=== PATIENT | male | born 1970 | race Caucasian/White ===

== ENCOUNTER 2017-09-26 12:02 | Inpatient (IN) | payer OTHER ==
[~2017-09-26] VITALS: Ht 193 cm; Wt 161.0 kg
[2017-09-26] MEDS ORDERED: ONDANSETRON ODT 4 MG TAB.RAPDIS SL PRN (22:00)
[2017-09-26] MEDS ORDERED: THIAMINE HCL 200 MG/2 ML VIAL IM ONE (22:00)
[2017-09-26] MEDS ORDERED: LORAZEPAM 1 MG TABLET PO PRN ×2 (22:00)
[2017-09-26] MEDS ORDERED: CLONIDINE HCL 0.1 MG TABLET PO PRN (22:00)
[2017-09-26] MEDS ORDERED: IBUPROFEN 400 MG TABLET PO PRN (22:00)
[2017-09-26] MEDS ORDERED: ACETAMINOPHEN 325 MG TABLET PO PRN (22:00)
[2017-09-26] MEDS ORDERED: LOPERAMIDE HCL 2 MG CAPSULE PO PRN ×2 (22:00)
[2017-09-26] MEDS ORDERED: MAG HYDROX/AL HYDROX/SIMETH 30 ML LIQUID UDC PO PRN (22:00)
[2017-09-26] MEDS ORDERED: LORAZEPAM 2 MG/1 ML VIAL IM PRN (22:00)
[2017-09-26] MEDS ORDERED: hydrALAZINE HCL 50 MG TABLET PO PRN (22:00)
[2017-09-26] MEDS ORDERED: ONDANSETRON 4 MG/2 ML VIAL IM PRN (22:00)
[2017-09-26] MEDS ORDERED: DICYCLOMINE HCL 20 MG TABLET PO PRN (22:00)
[2017-09-26] MEDS ORDERED: MIRALAX 17 GM POWD.PACK PO PRN (22:00)
--- NOTE | 2017-09-26 22:00 | NUR ---
Pre - ADMISSION NOTE : Patient is 47 yo male presents for medically supervised withdrawal from alcohol on 09/26/2017. Pt. is NKA, FULL CODE, on Reg.Diet. He denies history of seizures and SI/HI , doesnt have Primary Care Provider at this time. Pt. states Dx of HTN, insomnia. Longest sober period was 8 months in 2014. Upon assessment, pt is alert and oriented x4, speech is clear and audible, adiposities . Pt noted to be anxious, restless, worried. Heart rate regular. Denies chest pain or SOB. PERRLA, breathing is even and unlabored, lung sounds clear. Denies nausea, vomiting, tactile disturbances, visual or auditory hallucinations at this time. Abdomen is soft and non-distended. AM=709/95, HR=97, RR=16, Spo2=97%, denies pain. [id number], Height=64. CIWA=8. Pt. will be admitted to the unit.
[2017-09-26 22:40] LABS: BASOPHILS # (AUTO) 0.1 K/uL (0.0-8.0); BASOPHILS % (AUTO) 0.9 % (0.0-2.0); EOSINOPHILS # (AUTO) 0.3 K/uL (0.0-0.7); EOSINOPHILS % (AUTO) 2.6 % (0.0-7.0); HEMATOCRIT 50.6 % (36.7-47.1); HEMOGLOBIN 16.8 g/dL (12.5-16.3); LYMPHOCYTES # (AUTO) 2.2 K/uL (20.0-40.0); MEAN CORPUSCULAR HEMOGLOBIN 33.3 uug (23.8-33.4); MEAN CORPUSCULAR HGB CONC 33 g/dL (32.5-36.3); MEAN CORPUSCULAR VOLUME 100.6 fL (73.0-96.2); MONOCYTES # (AUTO) 0.7 K/uL (2.0-10.0); MONOCYTES % (AUTO) 6.3 % (0.0-11.0); NEUTROPHILS # (AUTO) 7.2 K/uL (1.8-8.9); NEUTROPHILS % (AUTO) 69.2 % (38.5-71.5); PLATELET COUNT (AUTO) 310 K/uL (152-348); RED BLOOD CELL COUNT(AUTO) 5.03 MIL/uL (4.06-5.63); WHITE BLOOD COUNT (AUTO) 10.4 K/uL (3.6-10.2)
[2017-09-26 22:47] LABS: *AMPHETAMINE, URINE NEGATIVE (NEGATIVE); *BARBITURATE, URINE NEGATIVE (NEGATIVE); *CANNABINOID, URINE NEGATIVE (NEGATIVE); *COCCAINE, URINE NEGATIVE (NEGATIVE); *OPIATE, URINE NEGATIVE (NEGATIVE); *PHENCYCLIDINE SCREEN,URINE NEGATIVE (NEGATIVE)
[2017-09-26 22:49] LABS: ETHANOL < 3 MG/DL (0-0)
[2017-09-26 22:55] LABS: ALANINE AMINOTRANSFERASE 44 U/L (16-63); ALKALINE PHOSPHATASE 73 U/L (50-136); AMYLASE 30 U/L (25-115); ASPARTATE AMINOTRANSFERASE 22 U/L (15-37); BILIRUBIN,TOTAL 0.6 mg/dL (0.2-1.0); CARBON DIOXIDE 31 mmol/L (21-32); CHLORIDE 101 mmol/L (98-107); CREATININE 1.2 mg/dL (0.6-1.3); GLUCOSE 114 mg/dL (74-106); MAGNESIUM 2.2 mg/dL (1.8-2.4); POTASSIUM 3.9 mmol/L (3.5-5.1); TOTAL PROTEIN, SERUM 7.4 g/dL (6.4-8.2); UREA NITROGEN, BLOOD 16 mg/dL (7-18)
[2017-09-26] MEDS ORDERED: LORAZEPAM 1 MG TABLET PO SCH (23:00)
--- NOTE | 2017-09-26 23:00 | NUR ---
ADMISSION NOTE : Patient is 47 yo male admitted for supervised withdrawal from alcohol on 09/26/2017. Pt. is NKA, FULL CODE, on Reg.Diet. He denies history of seizures and SI/HI , doesnt have Primary Care Provider at this time. Pt. states Dx of HTN, insomnia. Pt. brought his home meds, see PC infos for details. Medications have been reconciled. Longest sober period was 8 months in 2014. Upon assessment, pt is alert and oriented x4, speech is clear and audible, adiposities . Pt noted to be anxious, restless, worried. Heart rate regular. Denies chest pain or SOB. PERRLA, breathing is even and unlabored, lung sounds clear. Denies nausea, vomiting, tactile disturbances, visual or auditory hallucinations at this time. Abdomen is soft and non-distended. Bowel sounds present in all quadrants, last BM 09/26/17. Pt reports that BM is regular. Pt's skin is warm, dry and intact, no open skin damages, two small bruises on the left thigh, MD aware of pt's admission, pt. can use his CPAP machine in the night. WM=118/95, HR=97, RR=16, Spo2=97%, denies pain. [id number], Height=64. CIWA=8. Pt oriented to room and unit. Safety measures in place, side rails up x 2 . Will continue to monitor closely and offer help. Substance use history per patient report: 1) alcohol (wine) - pt. reports last use was 09/25/17, drinking 1,800ml daily for the past 6mo., started drinking s.1997. 1) alcohol (beers) - pt. reports last use was 09/25/17, drinking 650ml daily for the past 6mo., started drinking s 1997. Rehab history: none Past Medical History : Obesity, HTN, Insomnia, Sleep Apnoe. Family History : CAD, pancreatic Ca, CHF, Alcoholizm, Depression
[2017-09-27] VITALS: BP 149/95
[2017-09-27] MEDS ORDERED: ASPI-612 PO (01:43)
[2017-09-27] MEDS ORDERED: [UNRECOGNIZED DRUG - SUPPLY] (01:43)
[2017-09-27] MEDS ORDERED: NICO4GUM38 BC (01:43)
[2017-09-27] MEDS ORDERED: CHOL50002 PO (01:43)
[2017-09-27] MEDS ORDERED: ASPI-605 PO (01:43)
[2017-09-27] MEDS ORDERED: ALBU2.5V13 IH (01:43)
[2017-09-27] MEDS ORDERED: SODI650T PO (01:43)
[2017-09-27] MEDS ORDERED: SPIR25TA4 PO (01:43)
[2017-09-27] MEDS ORDERED: IBUP-2314 PO (01:43)
[2017-09-27] MEDS ORDERED: LISI-603 PO (01:43)
[2017-09-27] MEDS ORDERED: [UNRECOGNIZED DRUG - SUPPLY] (01:43)
[2017-09-27 04:00] VITALS: BP 155/100
--- NOTE | 2017-09-27 05:00 | NUR ---
PRN CLONIDINE TF=744/100. PRN CLONIDINE given as ordered. Safety measures in place : bed on lowest position with side rails x2 up for safety, call light within reach. Will continue to monitor closely and offer help.
--- NOTE | 2017-09-27 06:00 | NUR ---
RE-ASSESSMENT CLONIDINE Pt. is sleeping, RR=16, unlabored and even . Safety measures in place : bed on lowest position with side rails x2 up for safety, call light within reach. Will continue to monitor closely and offer help.
--- NOTE | 2017-09-27 06:41 | NUR ---
END OF SHIFT NOTE : Patient is 47 yo male admitted for supervised withdrawal from alcohol on 09/26/2017. CPAP device and Breath Treatment Machine placed to the room per MD order, SCD device connected to the patient per MD order. Pt. is compliant with a TX plan, PRN given during form designer : Clonidine. CIWA taken when pt. was awake, last CIWA=8 at 04:00. Intake=1,592 , voided x 2 , slept=6 hours. Pt. was anxious when awake in the night, but states he feels better . Safety measures in place : bed on lowest position with side rails x2 up for safety, all light within reach. Will continue to monitor closely and offer help.
--- NOTE | 2017-09-27 07:45 | NUR ---
START OF SHIFT Endorse rcvd from ongoing nurse. Client is in bed, a/o x 4, he presents anxious mood, flat affect, avoidant eye contact, flushed face, tremors felt not observed, clammy skin, and difficulty concentrating. Client reports in a loud, shaky voice; abdominal cramps, feeling of panic, restless legs, no appetite and fatigue. Encourage client to increase PO fluid to facilitate detox. Encourage client to participate to attend group therapy for skills to maintain sober. Last CIWA 8 @ 1999. PRN Clonidine 0.1mg PO for BP 155/102, One time Ativan taper 2mg for anxiety, noted effective. Client slept 6 hrs. Seizure precautions rendered. Call light within reach.
[2017-09-27] MEDS ORDERED: TUBERCULIN,PURIF.PROT.DERIV. 5 TU/0.1 ML TEST ID ONE (09:00)
[2017-09-27] MEDS ORDERED: [UNRECOGNIZED DRUG - SUPPLY] XX SCH (09:30)
[2017-09-27 09:40] VITALS: BP 133/84
[2017-09-27] MEDS: MULTIVITAMINS,THERAPEUTIC TABLET PO SCH (09:42)
[2017-09-27] MEDS: THIAMINE HCL 100 MG TABLET PO SCH (09:43)
[2017-09-27] MEDS: FOLIC ACID 1 MG TABLET PO SCH (09:43)
--- NOTE | 2017-09-27 09:54 | NUR ---
Administered PPD Test to L forearm. Client tolerated well.
[2017-09-27] MEDS: HCTZ PO SCH (10:35)
[2017-09-27] MEDS: LISINOPRIL 20 MG PO SCH (10:35)
[2017-09-27] MEDS: SPIRONOLACTONE PO SCH (10:35)
[2017-09-27] MEDS ORDERED: NICOTINE 14 MG/24HR PATCH TD PRN (11:15)
[2017-09-27] MEDS ORDERED: METHYL SALICYLATE/MENTHOL CREAM 28 GM TUBE TOP PRN (11:15)
[2017-09-27] MEDS ORDERED: ASPIRIN/ACETAMINOPHEN/CAFFEINE TABLET PO PRN (11:15)
[2017-09-27] MEDS ORDERED: NICOTINE POLACRILEX 4 MG GUM-PK OF TEN BC PRN (11:15)
[2017-09-27 12:21] VITALS: BP 139/86
[2017-09-27] MEDS: LORAZEPAM 1 MG TABLET PO SCH ×2 (12:58→16:10)
[2017-09-27 16:55] VITALS: BP 132/84
[2017-09-27] MEDS: CARVEDILOL 6.25 MG TABLET PO SCH (17:02)
--- NOTE | 2017-09-27 19:30 | NUR ---
START OF SHIFT NOTE : Patient is 47 yo male admitted for supervised withdrawal from alcohol on 09/26/2017. Pt. is NKA, FULL CODE, on Reg.Diet. He denies history of seizures and SI/HI . Upon assessment, pt is alert and oriented x4, speech is clear and audible. Pt noted to be worried about his future, anxious, sad facial expression, flat affect, restless legs time to time, tremors. He complains of difficulty falling and staying asleep , increased level of anxiety. Last CIWA=8 at 19:30, No PRNs given during the day shift. Safety measures in place : bed on lowest position with side rails x2 up for safety, all light within reach. Will continue to monitor closely and offer help.
--- NOTE | 2017-09-27 19:38 | NUR ---
END OF SHIFT Endorsed client to incoming nurse, client is a/o x 4, he is not compliant with group therapy d/t withdrawal symptoms, he continues to present with anxious mood, flat affect, restless legs, fine tremors, and nausea. He consumed ~ 50% of meals. Adequate PO fluid intake 2200mL, void x 7, stool x 2. Last CIWA 16 @ 1600. Call light within reach.
[2017-09-27 20:00] VITALS: BP 145/70
[2017-09-27] MEDS ORDERED: LORAZEPAM 1 MG TABLET PO SCH (21:00)
--- NOTE | 2017-09-27 21:00 | NUR ---
PRN BENADRYL Pt. complains of difficulty falling asleep, insomnia. PRN BENADRYL given as ordered. Safety measures in place : bed on lowest position with side rails x2 up for safety, call light within reach. Will continue to monitor closely and offer help.
[2017-09-27] MEDS: diphenhydrAMINE 50 MG CAPSULE PO PRN (21:41)
[2017-09-27] MEDS: GABAPENTIN 100 MG CAPSULE PO SCH (21:41)
--- NOTE | 2017-09-27 22:00 | NUR ---
RE-ASSESSMENT LEX Pt. is sleeping, RR=16, unlabored and even . Safety measures in place : bed on lowest position with side rails x2 up for safety, call light within reach. Will continue to monitor closely and offer help.
--- NOTE | 2017-09-28 06:13 | NUR ---
END OF SHIFT NOTE : Patient is 47 yo male admitted for supervised withdrawal from alcohol on 09/26/2017. Pt. is NKA, FULL CODE, on Reg.Diet. He denies history of seizures and SI/HI . PRN given during the shift lab technician is BENADRYL. CIWA taken when pt. was awake, last CIWA=8 at 04:00. Intake=1,146 , voided x3, BM=x2 , slept=7 hours. Pt. used his CPAP device during the night, also states decreased level of anxiety and promised to participates in activities and meetings of the unit. . Safety measures in place : bed on lowest position with side rails x2 up for safety, all light within reach. Will continue to monitor closely and offer help.
[2017-09-28 08:00] VITALS: BP 113/68
--- NOTE | 2017-09-28 08:10 | NUR ---
START OF SHIFT NOTE Received report from night nurse, patient received PRN Benadryl, slept for 7 hours, last CIWA score was 8. Patient is cont on Ativan taper tolerating well. Received pt alert awake oriented noted with flat effect, unshaven, agitated, anxious. Skin intact warm and dry to touch. Educated pt regarding plan of the day and medication regimen patient verbalized understanding. Safety measures in place. Will cont to monitor.
[2017-09-28] MEDS: FOLIC ACID 1 MG TABLET PO SCH (08:26)
[2017-09-28] MEDS: LORAZEPAM 1 MG TABLET PO SCH ×3 (08:26→21:19)
[2017-09-28] MEDS: THIAMINE HCL 100 MG TABLET PO SCH (08:26)
[2017-09-28] MEDS: CARVEDILOL 6.25 MG TABLET PO SCH ×2 (08:26→17:02)
[2017-09-28] MEDS: GABAPENTIN 100 MG CAPSULE PO SCH ×2 (08:26→21:19)
[2017-09-28] MEDS: MULTIVITAMINS,THERAPEUTIC TABLET PO SCH (08:26)
[2017-09-28] MEDS: HCTZ PO SCH (08:27)
[2017-09-28] MEDS: LISINOPRIL 20 MG PO SCH (08:27)
[2017-09-28] MEDS: SPIRONOLACTONE PO SCH (08:27)
[2017-09-28] MEDS: ASPIRIN 81 MG PO SCH (08:27)
[2017-09-28 12:08] LABS: HEPATITIS B SURFACE AG Negative (Negative)
[2017-09-28 12:16] VITALS: BP 139/88
[2017-09-28 16:00] VITALS: BP 136/93
--- NOTE | 2017-09-28 19:09 | NUR ---
END OF SHIFT NOTE Patient presented with anxiety, agitation, hot and cold flashes, flat mood effect. Patient was given scheduled medications and patient received breathing TX by RT. Patient remained compliant with treatment plan and medication regimen. Vital signs WNL. Skin intact warm and dry to touch. Patient attended groups and activities. Safety measures in place. Patient endorsed to night nurse in stable condition.
--- NOTE | 2017-09-28 19:30 | NUR ---
START OF SHIFT NOTE : Patient is 47 yo male admitted for supervised withdrawal from alcohol on 09/26/2017. Pt. is NKA, FULL CODE, on Reg.Diet. He denies history of seizures and SI/HI . NO PRNs given during the day shift . Last CIWA=8 at 16:00. Pt. is in the activity room, watching TV, he states to feel better, but also complains of tremor time to time, difficulty falling and staying asleep, increased level of anxiety, flashes time to time. He is very concern about his future and think about his future life all the time. Encouraged healthy diet while in detox. Educated patient regarding the importance of compliance to treatment and medication regime, patient verbalized understanding. Encouraged patient to participate in group therapies and verbalize feelings. Instructed patient to maintain adequate fluid and nutritional intake. Safety measures in place : bed on lowest position with side rails x2 up for safety, all light within reach. Will continue to monitor closely and offer help.
[2017-09-28 20:00] VITALS: BP 142/89
[2017-09-28] MEDS: diphenhydrAMINE 50 MG CAPSULE PO PRN (21:19)
[2017-09-29 04:00] VITALS: BP 141/95
--- NOTE | 2017-09-29 06:46 | NUR ---
END OF SHIFT NOTE : Patient is 47 yo male admitted for supervised withdrawal from alcohol on 09/26/2017. Pt. is NKA, FULL CODE, on Reg.Diet. He denies history of seizures and SI/HI . NO PRNs given during the day shift . Last CIWA=8 at 16:00. Pt. is compliant with a TX plan, PRN given during film processing shift supervisor : BENADRYL. CIWA taken when pt. was awake, last CIWA=8 at 04:00. Intake=1,296 , voided x3, , slept=5 hours. Safety measures in place : bed on lowest position with side rails x2 up for safety, all light within reach. Will continue to monitor closely and offer help.
--- NOTE | 2017-09-29 07:55 | NUR ---
START OF SHIFT NOTE Received report from night nurse, patient received PRN Benadryl, slept for 5 hours, last CIWA score was 8. Patient is cont on Ativan taper tolerating well. Received pt alert awake oriented pt c/o of anxiety, agitation, restless. Schedule medications due. Skin intact warm and dry to touch. Educated pt regarding plan of the day and medication regimen patient verbalized understanding. Safety measures in place. Will cont to monitor.
[2017-09-29 08:00] VITALS: BP 125/88
[2017-09-29] MEDS: THIAMINE HCL 100 MG TABLET PO SCH (08:19)
[2017-09-29] MEDS: GABAPENTIN 100 MG CAPSULE PO SCH ×2 (08:19→20:43)
[2017-09-29] MEDS: MULTIVITAMINS,THERAPEUTIC TABLET PO SCH (08:19)
[2017-09-29] MEDS: FOLIC ACID 1 MG TABLET PO SCH (08:19)
[2017-09-29] MEDS: HCTZ PO SCH (08:20)
[2017-09-29] MEDS: ASPIRIN 81 MG PO SCH (08:20)
[2017-09-29] MEDS: SPIRONOLACTONE PO SCH (08:20)
[2017-09-29] MEDS: LISINOPRIL 20 MG PO SCH (08:20)
[2017-09-29] MEDS: CARVEDILOL 6.25 MG TABLET PO SCH ×2 (08:22→17:27)
[2017-09-29] MEDS: ALBUTEROL INHALATION INH PRN (08:26)
[2017-09-29 12:00] VITALS: BP 151/99
--- NOTE | 2017-09-29 12:00 | NUR ---
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 It has been affecting my health, my family, all my relationships, and everything in my life.." Pt verbalizes he is motivated to stay clean and work on his sobriety. Pt also states, "I want a better life. I cannot live like this any longer. I am willing to take all the help I can get. I can't do this by myself."
--- NOTE | 2017-09-29 12:13 | NUR ---
PRN HYDRALAZINE Patient blood pressure noted 151/99, HR-100. PRN Hydralazine 50mg PO given as ordered. Will cont to monitor and reassess.
--- NOTE | 2017-09-29 13:13 | NUR ---
CLONIDINE REASSESSMENT Blood pressure noted 145/85, HR-89,Clonidine was effective. Addendum: 09/29/17 at 1455 by MELANIE SILVEIRA LVN ERROR-Hydralazine reassessment, Hydralazine was effective.
--- NOTE | 2017-09-29 15:12 | NUR ---
Therapist encouraged client to attend groups.
[2017-09-29 16:00] VITALS: BP 134/89
--- NOTE | 2017-09-29 19:00 | NUR ---
END OF SHIFT NOTE Patient presented with anxiety, agitation, high blood pressure. Patient cont on Ativan taper tolerating well. Patient received scheduled medications and PRN Hydralazine noted to be effective. Patient was seen by MD with no new orders. Skin intact warm and dry to touch. Patient remained compliant to treatment plan and medications. Safety measures in place. Patient endorsed to night nurse in stable condition.
[2017-09-29 20:00] VITALS: BP 132/88
--- NOTE | 2017-09-29 20:00 | NUR ---
START OF SHIFT NOTE RECEIVED REPORT FROM DAY SHIFT NURSE. PATIENT IS A 47 YEAR OLD MALE ADMITTED FOR ETOH WITHDRAWAL . PATIENT IS ON 3RD DAY OF HIS 5 DAY ATIVAN TAPER, TOLERATED WELL AND NO ADVERSE REACTION. PATIENT WITH HISTORY OF HYPERTENSION. PATIENT WAS GIVEN PRN HYDRALAZINE. BP- WAS 152/99 HR-115 , LATEST BP IS 134/89 HR -112. C-PAP AT BEDSIDE. LAST CIWA 10. RECEIVED PATIENT IN THE ROOM. HE WAS JUST IN THE GROUP. PATIENT ANXIOUS, FLUSHED, SWEATING AND NOTED UNFOLD CLOTHES ON TOP OF DRAWER,. SAFETY MEASURES IN PLACE. CALL LIGHT IN REACH. WILL CONTINUE TO MONITOR.
[2017-09-29] MEDS: LORAZEPAM 1 MG TABLET PO SCH (20:43)
[2017-09-30] VITALS: BP 120/74
--- NOTE | 2017-09-30 | NUR ---
CIWA DEFERRED PATIENT IN BED WITH EYES CLOSED. CIWA DEFERRED. RESPIRATION EVEN AND UNLABORED.WILL CONTINUE TO MONITOR.
[2017-09-30 04:00] VITALS: BP 103/68
--- NOTE | 2017-09-30 04:00 | NUR ---
CIWA DEFERRED PATIENT IN BED WITH EYES CLOSED. CIWA DEFERRED. RESPIRATION EVEN AND UNLABORED.WILL CONTINUE TO MONITOR.
--- NOTE | 2017-09-30 05:20 | NUR ---
PRN MOTRIN ADMINISTRATION PATIENT C/O BACK PAIN 12/10. WILL MONITOR FOR EFFECTIVENESS
--- NOTE | 2017-09-30 06:20 | NUR ---
PRN MOTRIN RE-ASSESSMENT PATIENT STATES MOTRIN IS HELPFUL AND EFFECTIVE. NO PAIN AT THIS TIME. WILL CONTINUE TO MONITOR
--- NOTE | 2017-09-30 07:08 | NUR ---
END OF SHIFT NOTE PATIENT SLEPT 6 HOURS. FLUID INTAKE 1,656 ML. VOIDED X 3. BM X 1. MONITORED PATIENT THROUGHOUT SHIFT. MEDICATION GIVEN ORDERED. TOLERATED WELL AND NO ADVERSE REACTION. C-PAP ON THROUGHOUT THE NIGHT. NO SHORTNESS OF BREATH. PATIENTS BLOOD PRESSURE WNL. AT 0520, PATIENT C/O BACK PAIN 12/10. PRN MOTRIN GIVEN AND EFFECTIVE. SAFETY MEASURES IN PLACE. CALL LIGHT IN REACH. WILL CONTINUE TO MONITOR. LAST CIWA. Addendum: 09/30/17 at 0710 by GABRIEL CAMPOS LVN LAST CIWA 7.
--- NOTE | 2017-09-30 07:20 | NUR ---
START OF SHIFT NOTE RECEIVED REPORT FROM RIP/MOULD OPERATOR NURSE. PATIENT IS A 47 YEAR OLD MALE ADMITTED FOR ALCOHOL WITHDRAWAL . PATIENT IS ON 4TH DAY OF HIS 5 DAY ATIVAN TAPER, TOLERATED WELL AND NO ADVERSE REACTION. PATIENT WITH HISTORY OF HYPERTENSION. C-PAP AT BEDSIDE. LAST CIWA 7. RECEIVED PATIENT IN THE ROOM.PATIENT IS AWAKE IN HIS ROOM AT THIS TIME, NO REQUESTS AT THIS TIME. SAFETY MEASURES IN PLACE. CALL LIGHT IN REACH. WILL CONTINUE TO MONITOR.
[2017-09-30 08:00] VITALS: BP 129/74
[2017-09-30] MEDS ORDERED: LORAZEPAM 1 MG TABLET PO SCH (09:00)
[2017-09-30] MEDS: ALBUTEROL INHALATION INH PRN (09:31)
[2017-09-30] MEDS: CARVEDILOL 6.25 MG TABLET PO SCH ×2 (09:32→17:44)
[2017-09-30] MEDS: MULTIVITAMINS,THERAPEUTIC TABLET PO SCH (09:32)
[2017-09-30] MEDS: THIAMINE HCL 100 MG TABLET PO SCH (09:32)
[2017-09-30] MEDS: LORAZEPAM 1 MG TABLET PO SCH (09:32)
[2017-09-30] MEDS: FOLIC ACID 1 MG TABLET PO SCH (09:32)
[2017-09-30] MEDS: GABAPENTIN 100 MG CAPSULE PO SCH ×2 (09:32→22:57)
[2017-09-30] MEDS: ASPIRIN 81 MG PO SCH (09:33)
[2017-09-30] MEDS: HCTZ PO SCH (09:33)
[2017-09-30] MEDS: LISINOPRIL 20 MG PO SCH (09:33)
[2017-09-30] MEDS: SPIRONOLACTONE PO SCH (09:33)
[2017-09-30 12:00] VITALS: BP 130/87
[2017-09-30] MEDS ORDERED: GABA-532 PO (14:59)
[2017-09-30] MEDS ORDERED: CARV6.252 PO (14:59)
[2017-09-30 17:45] VITALS: BP 140/94
--- NOTE | 2017-09-30 18:58 | NUR ---
END OF SHIFT PATIENT IS A 47 YR OLD MALE WITHDRAWING FROM ALCOHOL. PATIENT HAS BEEN ON A 5 DAY ATIVAN TAPER. PATIENT HAS NOT REQUESTED OR REQUIRED ANY PRN MEDICATIONS THIS SHIFT. HE HAS ATTENDED GROUP TODAY AND COMPLIANT WITH TREATMENT PLAN. FLUID INTAKE THIS SHIFT 1900, 3 VOIDS AND 1 BM. LAST CIWA 8 @ 1600. CONTINUE TO FOLLOW MD PLAN OF CARE.
--- NOTE | 2017-09-30 19:12 | NUR ---
Start of shift note Received report from day shift nurse. Pt is a 47 yo male, A+Ox4, presenting to [facility] for ETOH withdrawal. Pt noted with anxiety and agitation. Pt has HX of HTN and Insomnia which will be monitored during shift. Pt has completed Ativan taper and is due for discharge tomorrow. Respirations even and unlabored. Will continue to monitor.
[2017-09-30 20:15] VITALS: BP 139/89
[2017-09-30] MEDS: diphenhydrAMINE 50 MG CAPSULE PO PRN (22:57)
--- NOTE | 2017-09-30 22:57 | NUR ---
PRN Benadryl Pt c/o inability to sleep and requested for PRN Benadryl. Medication given and tolerated well. Will reassess within 1 HR. Will continue to monitor.
--- NOTE | 2017-09-30 23:45 | NUR ---
PRN Benadryl Reassessment Medication effective. Pt is resting well in bed. No s/s of ASE noted at this time. Respirations even and unlabored. Will continue to monitor.
[2017-10-01 00:03] VITALS: BP 137/84
[2017-10-01 04:27] VITALS: BP 132/82
--- NOTE | 2017-10-01 06:54 | NUR ---
End of shift note Pt continuously noted with anxiety and agitation throughout shift. Pt was frequently out of room to smoke on smoking patio and to get food from kitchen area. Pt was given PRN Benadryl @2257 for inability to sleep. Pt has completed Ativan taper and is due for discharge today. Pt slept for a total of 7 HRS. Last CIWA: 6 @0400. V/S were WNL during shift. Respirations even and unlabored. Will endorse to day shift nurse.
[2017-10-01 08:12] VITALS: BP 138/87
[2017-10-01] MEDS: THIAMINE HCL 100 MG TABLET PO SCH (08:12)
[2017-10-01] MEDS: FOLIC ACID 1 MG TABLET PO SCH (08:12)
[2017-10-01] MEDS: CARVEDILOL 6.25 MG TABLET PO SCH (08:12)
[2017-10-01] MEDS: GABAPENTIN 100 MG CAPSULE PO SCH (08:13)
[2017-10-01] MEDS: MULTIVITAMINS,THERAPEUTIC TABLET PO SCH (08:13)
[2017-10-01] MEDS: ASPIRIN 81 MG PO SCH (08:15)
[2017-10-01] MEDS: SPIRONOLACTONE PO SCH (08:15)
[2017-10-01] MEDS: HCTZ PO SCH (08:15)
[2017-10-01] MEDS: LISINOPRIL 20 MG PO SCH (08:16)
--- NOTE | 2017-10-01 08:45 | NUR ---
START OF SHIFT Patient is 47 year old male admitted for medically supervised withdrawal from alcohol. Patient is full code with NKA. Most recent CIWA: 5. Patients vitals signs WNL. Patient reports anxiety and tremors. Compliant with meds this shift. Patient has steady gait and goes out for patio break with escort. Pending discharge this morning. Will continue to monitor patient.
[2017-10-01] MEDS ORDERED: LORAZEPAM 1 MG TABLET PO SCH (09:00)
--- NOTE | 2017-10-01 09:30 | NUR ---
DISCHARGE NOTE: Patient is in stable condition, vital signs WNL. Patient is alert and oriented X4. Patient denies any suicidal or homicidal ideations. All discharge paperwork completed, signed and dated. Patient was provided education on the discharge instructions. Patients last CIWA was 5. Patient left the facility at 09:15am with all his belongings, home meds, patient aware of his electronic prescriptions sent to his pharmacy of choice and discharged to [facility].
== END 2017-10-01 09:18 | disposition other institution (70) | DRG 895 ==
LOC: SRC 21:16
PROVIDERS: ADMIT Internal Medicine; ATTEND Internal Medicine
PROC: HZ2ZZZZ Detoxification Services for Substance Abuse Treatment (ICD-10-PCS; principal; 2017-09-26)
PROC: HZ41ZZZ Group Counseling for Substance Abuse Treatment, Behavioral (ICD-10-PCS; 2017-09-28)
PROC: HZ31ZZZ Individual Counseling for Substance Abuse Treatment, Behavioral (ICD-10-PCS; 2017-09-29)
DX: F10.232 Alcohol dependence with withdrawal with perceptual disturbance (principal); I15.9 Secondary hypertension, unspecified; J43.9 Emphysema, unspecified; Z68.41 Body mass index [BMI] 40.0-44.9, adult; F17.210 Nicotine dependence, cigarettes, uncomplicated; Y90.0 Blood alcohol level of less than 20 mg/100 ml; G47.33 Obstructive sleep apnea (adult) (pediatric); G43.909 Migraine, unspecified, not intractable, without status migrainosus; Z81.1 Family history of alcohol abuse and dependence; Z81.8 Family history of other mental and behavioral disorders; Z82.49 Family history of ischemic heart disease and other diseases of the circulatory system; Z79.82 Long term (current) use of aspirin; Z79.899 Other long term (current) drug therapy; E66.9 Obesity, unspecified; Z71.3 Dietary counseling and surveillance; Z80.0 Family history of malignant neoplasm of digestive organs; R73.9 Hyperglycemia, unspecified; M50.80 Other cervical disc disorders, unspecified cervical region
CPT/HCPCS: 36415; 70030-TC; 80307; 83735; 85025; 86580; 86592; 86705; 86803; 87340; 87806; A4663; G0480; Q0163